=== PATIENT | male | born 1985 | race Caucasian/White ===

== ENCOUNTER 2022-03-23 11:25 | Emergency (ER) | payer BC, OTHER ==
[2022-03-23 12:26] LABS: CARBON DIOXIDE,CO2 27.6 mmol/L (21.0-32.0); POTASSIUM,K 3.7 mmol/L (3.5-5.1)
== END 2022-03-23 13:50 | disposition home or self-care (01) ==
LOC: MW.ED 11:25
DX: R07.89 Other chest pain (principal)
CPT/HCPCS: 36415; 71045; 71045-26; 80053; 84484; 85025; 93010; 99283; 99285